=== PATIENT | female | born 1965 | race American Indian/Alaskan Native ===

== ENCOUNTER 2017-04-23 15:34 | Emergency (ER) | payer MEDICARE ==
[2017-04-23 15:35] VITALS: BMI 27.9
[2017-04-23 15:51] VITALS: BP 123/81; PULSE 98; RESP 18; TEMP 98.1; O2SAT 98
--- NOTE | 2017-04-23 17:01 | ED PDOC ---
Arrival/HPI - General Chief Complaint: Lower Extremity Problem/Injury Time Seen by Provider: 04/23/17 15:42 Historian: Patient - History of Present Illness Narrative History of Present Illness (Text): 04/23/17 16:56 A 52 year old female, whose past medical history includes anemia, presents to the emergency department complaining of left hip pain for the past 4 days. Patient describes her pain as a pinching sensation which has progressively worsened. She notes her pain is exacerbated with movement and ambulation. Patient took Ibuprofen yesterday, with no relief. Patient denies any trauma, myalgias, fever, chills, nausea, vomiting, abdominal pain, chest pain, shortness of breath or any other complaints. Patient reports similar pain to right hip in the past; as per prior records patient diagnosed with bursitis. Time/Duration: Other (4 days) Symptom Course: Worsening Quality: Other Context: Home Past Medical History - Provider Review Nursing Documentation Reviewed: Yes - Past History Past History: No Previous - Infectious Disease Hx of Infectious Diseases: None - Tetanus Immunization Tetanus Immunization: Unknown - Neurological Hx Migraine: Yes Hx Transient Ischemic Attacks (TIA): Yes - Hematological/Oncological Hx Anemia: Yes - Musculoskeletal/Rheumatological Hx Falls: No - Psychiatric Hx Substance Use: Yes - Past Surgical History Past Surgical History: No Previous - Suicidal Assessment Feels Threatened In Home Enviroment: No Family/Social History - Physician Review Nursing Documentation Reviewed: Yes Family/Social History: No Known Family HX Smoking Status: Current Some Days Smoker Hx Alcohol Use: Yes Hx Substance Use: Yes Allergies/Home Meds Allergies/Adverse Reactions: Allergies Penicillins Allergy (Verified 04/23/17 15:51) RASH Home Medications: Home Meds Medication Instructions Recorded Confirmed Unobtainable 04/23/17 04/23/17 Review of Systems - Physician Review All systems were reviewed & negative as marked: Yes - Review of Systems Constitutional: absent: Fevers, Night Sweats Respiratory: absent: SOB Cardiovascular: absent: Chest Pain Gastrointestinal: absent: Abdominal Pain, Nausea, Vomiting Musculoskeletal: absent: Myalgias Skin: Other (left hip pain) Physical Exam Vital Signs Reviewed: Yes Vital Signs Temp Pulse Resp BP Pulse Ox 04/23/17 15:48 98.1 F 98 H 18 123/81 98 Temperature: Afebrile Blood Pressure: Normal Pulse: Tachycardic Respiratory Rate: Normal Appearance: Positive for: Well-Appearing, Non-Toxic, Comfortable Pain Distress: None Mental Status: Positive for: Alert and Oriented X 3 - Systems Exam Head: Present: Atraumatic, Normocephalic Pupils: Present: PERRL Extroacular Muscles: Present: EOMI Conjunctiva: Present: Normal Mouth: Present: Moist Mucous Membranes Neck: Present: Normal Range of Motion Respiratory/Chest: Present: Clear to Auscultation, Good Air Exchange. No: Respiratory Distress, Accessory Muscle Use Cardiovascular: Present: Regular Rate and Rhythm, Normal S1, S2. No: Murmurs Abdomen: Present: Normal Bowel Sounds. No: Tenderness, Distention, Peritoneal Signs Back: Present: Normal Inspection Upper Extremity: Present: Normal Inspection. No: Cyanosis, Edema Lower Extremity: Present: NORMAL PULSES (perpherally), Tenderness (to left hip) , Neurovascularly Intact, Other (Sensation intact, Slightly decreased strength to left hip). No: Edema, CALF TENDERNESS, Normal ROM (decrease ROM), Swelling, Erythema, Deformity, Temperature Abnormalties Neurological: Present: GCS=15, CN II-XII Intact, Speech Normal Skin: Present: Warm, Dry, Normal Color. No: Rashes Psychiatric: Present: Alert, Oriented x 3, Normal Insight, Normal Concentration Medical Decision Making ED Course and Treatment: 04/23/17 16:56 Impression: A 52 year old female with left hip pain Differential Diagnosis included but are not limited to: Left hip pain rule out necrosis vs. infection vs. fracture Plan: -- Abdomen and pelvis CT -- Labs -- Blood culture -- Urinalysis -- Toradol -- Reassess and disposition Progress Notes: 04/23/17 18:43 Patient received morphine for more pain control. CT results pending. Signed out to Dr. Jfef to f/u CT results, reevaluate and dispositoin. - Lab Interpretations Lab Results: 04/23/17 16:44 04/23/17 16:44 Lab Results 04/23/17 16:44: Sodium 142, Potassium 4.2, Chloride 103, Carbon Dioxide 28, Anion Gap 15, BUN 12, Creatinine 0.7, Est GFR ( Amer) > 60, Est GFR (Non- Af Amer) > 60, Random Glucose 100, Calcium 10.2, Total Bilirubin 0.6, AST 23, ALT 35, Alkaline Phosphatase 67, Total Protein 8.1, Albumin 4.4, Globulin 3.7, Albumin/Globulin Ratio 1.2 04/23/17 16:44: WBC 9.4, RBC 4.25, Hgb 13.3, Hct 39.2, MCV 92.2, MCH 31.3, MCHC 33.9, RDW 13.5, Plt Count 291, MPV 10.2, Gran % 63.9, Lymph % (Auto) 26.2, Giles % (Auto) 8.1 H, Eos % (Auto) 1.5, Baso % (Auto) 0.3, Gran # 5.99, Lymph # 2.5, Giles # 0.8 H, Eos # 0.1, Baso # 0.03 I have reviewed the lab results: Yes - RAD Interpretation Radiology Orders: 04/23/17 16:34 HIP WITHOUT CONTRAST LEFT [CT] Stat - Medication Orders Current Medication Orders: Discontinued Medications Ketorolac Tromethamine (Toradol) 30 mg IVP STAT STA Stop: 04/23/17 16:40 Last Admin: 04/23/17 16:47 Dose: 30 mg [facility] Pain Assessment Document 04/23/17 16:47 OCS (Rec: 04/23/17 16:47 OCS [id number]) Pain Reassessment Is this a pain reassessment? Yes Sleep Is patient sleeping during reassessment? No Presence of Pain Presence of Pain Yes Location Left, Right or Bilateral Left Pain Location Body Site Hip Description Description Constant IVP Administration Document 04/23/17 16:47 OCS (Rec: 04/23/17 16:47 OCS [id number]) Charges for Administration # of IVP Administrations 1 Re-Assess: MAR Pain Assessment Document 04/23/17 17:50 OCS (Rec: 04/23/17 18:34 OCS [id number]) Pain Reassessment Is this a pain reassessment? Yes Sleep Is patient sleeping during reassessment? No Presence of Pain Presence of Pain Yes Pain Scale Used Pain Scale Used Numeric Location Left, Right or Bilateral Left Pain Location Body Site Hip Description Description Constant Intensity of Pain at present 10 Morphine Sulfate (Morphine) 4 mg IVP STAT STA Stop: 04/23/17 17:48 Last Admin: 04/23/17 18:00 Dose: 4 mg MAR Pain Assessment Document 04/23/17 18:00 OCS (Rec: 04/23/17 18:34 OCS [id number]) Pain Reassessment Is this a pain reassessment? Yes Sleep Is patient sleeping during reassessment? No Presence of Pain Presence of Pain Yes Pain Scale Used Pain Scale Used Numeric Location Left, Right or Bilateral Left Pain Location Body Site Hip Description Description Constant Intensity of Pain at present 10 IVP Administration Document 04/23/17 18:00 OCS (Rec: 04/23/17 18:34 OCS [id number]) Charges for Administration # of IVP Administrations 1 - Scribe Statement The provider has reviewed the documentation as recorded by the Scribe Niya Mckeon Provider Scribe Attestation: All medical record entries made by the Scribe were at my direction and personally dictated by me. I have reviewed the chart and agree that the record accurately reflects my personal performance of the history, physical exam, medical decision making, and the department course for this patient. I have also personally directed, reviewed, and agree with the discharge instructions and disposition. Disposition/Present on Arrival - Present on Arrival Any Indicators Present on Arrival: No History of DVT/PE: No History of Uncontrolled Diabetes: No Urinary Catheter: No History of Decub. Ulcer: No History Surgical Site Infection Following: None - Disposition Have Diagnosis and Disposition been Completed?: No Diagnosis: Left hip pain Disposition Time: 18:44 Condition: FAIR Referrals: Christine Vázquez [Primary Care Provider] - Follow up with primary Forms: [employer] (Romanian)
[2017-04-23 17:04] LABS: BASO # 0.03 K/mm3 (0.0-2.0); BASO % 0.3 % (0.0-3.0); EOS # 0.1 (0.0-0.7); EOS % 1.5 % (1.5-5.0); GRAN # 5.99 (1.4-6.5); GRAN % 63.9 % (50.0-68.0); HEMOGLOBIN 13.3 g/dL (12.0-16.0); LYMPH # 2.5 (1.2-3.4); LYMPH % 26.2 % (22.0-35.0); MEAN CELL VOLUME 92.2 fl (80.0-105.0); MEAN CORPUSCULAR HEMOGLOBIN 31.3 pg (25.0-35.0); MEAN CORPUSCULAR HGB CONC 33.9 g/dl (31.0-37.0); MEAN PLATELET VOLUME 10.2 fl (7.0-11.0); MONO # 0.8 (0.1-0.6); MONO % 8.1 % (1.0-6.0); RBC 4.25 10^6/uL (3.5-6.1); RED CELL DISTRIBUTION WIDTH 13.5 % (11.5-14.5); WHITE BLOOD COUNT 9.4 10^3/ul (4.5-11.0)
[2017-04-23 17:05] LABS: ALB/GLOB RATIO 1.2 (1.1-1.8); ALBUMIN 4.4 g/dL (3.0-4.8); ALT/SGPT 35 U/L (7-56); AST/SGOT 23 U/L (14-36); BLOOD UREA NITROGEN 12 mg/dL (7-21); CALCIUM 10.2 mg/dL (8.4-10.5); GFR AFRICAN-AMERICAN > 60; GFR NON-AFRICAN AMERICAN > 60
[2017-04-23] MEDS ORDERED: Morphine 4 mg/ml ISec IVP STA (17:47)
--- NOTE | 2017-04-23 18:55 | CT ---
PROCEDURE: CT of the Left Hip. HISTORY: left hip pain r/o fx r/o avas necro COMPARISON: CT scan of the pelvis without contrast from 05/27/2012 TECHNIQUE: Contiguous axial images of the left hip were obtained. Coronal and sagittal reformats were generated. This CT exam was performed using one or more of the following dose reduction techniques: Automated exposure control, adjustment of the mA and/or kV according to patient size, and/or use of iterative reconstruction technique. FINDINGS: BONES: Bone alignment and mineralization are normal. There is no acute displaced fracture or bone destruction. The femoral head is normal in contour without evidence for avascular necrosis. LEFT HIP JOINT: The left hip joint space is preserved. No dislocation. No degenerative changes. SOFT TISSUES: There are lobular calcifications lateral to the proximal femur in the vastus lateralis. IMPRESSION: 1. No evidence of acute fracture or avascular necrosis in the left hip. 2. Lobular calcifications lateral to the proximal femur in the vastus lateralis nonspecific but could represent heterotopic ossification or could be related to old trauma.
[2017-04-23 19:12] LABS: URINE BILIRUBIN NEGATIVE (NEGATIVE); URINE BLOOD NEGATIVE (NEGATIVE); URINE GLUCOSE (UA) NEGATIVE (NEGATIVE); URINE LEUKOCYTE ESTERASE LARGE Leu/uL (NEGATIVE); URINE NITRATE NEGATIVE (NEGATIVE); URINE PROTEIN NEGATIVE mg/dL (<30 mg/dL); URINE UROBILINOGEN 0.2 E.U./dL (<1 E.U./dL)
[2017-04-23 19:17] LABS: URINE APPEARANCE SL CLOUDY (CLEAR); URINE COLOR YELLOW (YELLOW)
[2017-04-23 19:44] LABS: URINE EPITHELIAL CELLS 0 - 2 /hpf (0-5); URINE RBC 0 - 2 /hpf (0-2); URINE WBC 25 - 30 /hpf (0-6)
[2017-04-23 19:45] LABS: URINE BACTERIA FEW (NEG)
== END 2017-04-23 19:31 | disposition home or self-care (01) ==
LOC: ED 15:34
DX: M25.552 Pain in left hip (principal); Z88.0 Allergy status to penicillin; Z86.73 Personal history of transient ischemic attack (TIA), and cerebral infarction without residual deficits
CPT/HCPCS: 73700; 80053; 81001; 85025; 87040; 96374; 96375; 99283; J1885; J2270